=== PATIENT | male | born 1950 | race Caucasian/White ===

== ENCOUNTER 2019-12-05 11:30 | Emergency (ER) | payer OTHER, SELFPAY ==
[~2019-12-05] VITALS: Ht 167.6 cm; Wt 76.2 kg
[2019-12-05 11:32] VITALS: Ht 167.6 cm; Wt 76.2 kg
[2019-12-05 16:04] VITALS: BP 137/77
== END 2019-12-05 16:04 | disposition home or self-care (01) ==
LOC: ED 11:30
DX: R91.8 Other nonspecific abnormal finding of lung field (principal); J02.9 Acute pharyngitis, unspecified; E78.00 Pure hypercholesterolemia, unspecified; F32.9 Major depressive disorder, single episode, unspecified; Z20.828 Contact with and (suspected) exposure to other viral communicable diseases
CPT/HCPCS: 36600; Q0092; U0003-CS